=== PATIENT | male | born 1975 | race Caucasian/White ===

== ENCOUNTER 2023-02-18 17:32 | Inpatient (IN) | payer OTHER ==
[~2023-02-18] VITALS: Ht 172.7 cm; Wt 78.6 kg
[2023-02-18 22:55] VITALS: BP 112/68
[2023-02-18 23:45] VITALS: BP 121/82
[2023-02-19] VITALS (18 sets, daily range): BP systolic 94–131; BP diastolic 60–92
[2023-02-19] MEDS ORDERED: BUPRENORPHINE HC8 MG SL (12:03)
[2023-02-19] MEDS ORDERED: CLONAZEPAM0.5 MG PO (12:03)
[2023-02-19] MEDS ORDERED: CYCLOBENZAPRINE10 MG PO (12:04)
[2023-02-19] MEDS ORDERED: OMEPRAZOLE40 MG PO (12:04)
[2023-02-19] MEDS ORDERED: LAMOTRIGINE150 MG PO (12:05)
[2023-02-19] MEDS ORDERED: TRAZODONE HCL50 MG PO (12:05)
[2023-02-19] MEDS ORDERED: DULOXETINE HCL60 MG PO (12:06)
[2023-02-19] MEDS ORDERED: MELOXICAM15 MG PO (12:06)
[2023-02-19] MEDS ORDERED: ALEVE220 MG PO (17:10)
[2023-02-20] VITALS (17 sets, daily range): BP systolic 91–124; BP diastolic 63–91
--- NOTE | 2023-02-20 08:26 | CONS ---
[facility] [address] [place], [place] [address] Signed DATE OF CONSULTATION: 02/19/2023 CHIEF COMPLAINT: Anemia. HISTORY OF PRESENT ILLNESS: Leandro is a 47-year-old gentleman, who actually lives an hour over the [facility] in [place], [place]. We finally did receive some of his records and he is anemic with a low hemoglobin and a mean cell volume low as well. He has obviously been seeing his primary care providers at the clinic. He has had seen several providers. He tells me his dad and his mom is quite senile. He and his two brother still live in the family house. He is the only one in the whole family that drives. He has two children, but he never sees them. He said his friend, Mitali is his contact lens inspector, but it is actually her . It sounds like he has to spend some amount of time in a wheelchair because of his neck and lumbar radiculopathy. He mentions having undergone upper endoscopy twice in [address] Forman with esophageal dilation and a history of a moderate-sized hiatal hernia. 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 [place] [facility]. Apparently, he went up over the curve. I am not sure of all the details. He was tachycardic when the ambulance came and he end up coming to our local emergency room. His hemoglobin was all the way down to 2.5 with a mean cell volume of 54. BUN has been fine. His creatinine is up at 2.3 and his lactic acid was up at 17. Albumin is low at 2.5. His AST runs a little high at 44 and his alkaline phosphatase has been running high last fall, but it is normal today. The urine tox screen of course showed his typical buprenorphine but otherwise was negative. He has been admitted to our hospitalist service. He had a chest x-ray which was unremarkable. The CT scan of the abdomen and pelvis showed his moderate-sized hiatal hernia, but the liver and spleen and other areas were unremarkable. He has now received 6 units of packed red blood cells and overall is feeling much better. His labs have almost normalized. He has been working on his bowel prep today and amazingly, he is yet to pass any stool. He said he does not run constipated. He does not seem to have any upper or lower GI complaints and yet he takes meloxicam every day for his arthritis issues. However, he does use omeprazole every day as well. He said it is hard for him to buy his other medications because he cannot afford them. I have been asked to see him as a local general surgeon and consider upper and lower endoscopy once he has been stabilized. PAST MEDICAL HISTORY: Bipolar disorder, anxiety, depression, chronic neck pain, gastroesophageal reflux disease, moderate-sized hiatal hernia, degenerative disk disease, insomnia, decreased left lower extremity strength from his lumbar radiculopathy, carpal tunnel syndrome. He had webbed fingers as a child and had those repaired with the help of skin grafts. He also has esophageal dysphagia. Electronically Signed By: SARAH CARRIZALES MD 02/20/23 0826 PATIENT NAME: LEANDRO POLK CONSULTATION DATE OF : 79 REPORT #: [id number] PHYSICIAN: SARAH CARRIZALES MD PCP: OTHER PCP REPORT IS CONFIDENTIAL AND NOT TO BE RELEASED WITHOUT AUTHORIZATION [facility] [address] [place] [id number] Signed PAST SURGICAL HISTORY: The upper endoscopy with esophageal dilations x2 [place] [address] Forman, cervical disk surgery x2, carpal tunnel release, mandibular surgery and separation of his webbed fingers with skin grafts. SOCIAL HISTORY: Apparently, he does smoke and drinks some but apparently he has quit. Apparently has a wheelchair, but he does drive. He is single now, but he does have two children, which he has not seen in years. He prefers the [facility] in [place], [place]. Suzette Malik is his nurse practitioner. He said his dad has , but his mom is quite senile. He said he and his two brothers live in their family home. 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 He said his friend is Mitali Rice at [phone], although mainly it is her . FAMILY HISTORY: He cannot recall any colon cancer or polyps in the family. REVIEW OF SYSTEMS: He had 10 systems reviewed and he is a fair to moderate historian. ALLERGIES: Paper tape. MEDICATIONS: Buprenorphine p.r.n., clonazepam, baclofen, trazodone, Lamictal, meloxicam, and omeprazole. PHYSICAL EXAMINATION: VITAL SIGNS: Blood pressure is 119/82, his heart rate is 87, respiratory rate 17, temperature is 98.1. He is 96% on room air. He is 5 feet 8 inches at 78 kg with a body mass index of 26. GENERAL: Leandro is a 47-year-old gentleman, lying supine in the ICU bed, watching TV. He just finished his 6 unit of packed red blood cells. He was sleeping this morning when I first came. He still a little pale but generally is alert, awake and interactive and does his best to answer questions. LUNGS: Clear to auscultation. HEART: Regular rate and rhythm without murmurs. ABDOMEN: Soft, flat, although he just finished his second bottle of polyethylene glycol and he said he is a little full. RECTAL: Not performed currently. LABORATORY DATA: Electronically Signed By: SARAH CARRIZALES MD 02/20/23 0826 PATIENT NAME: LEANDRO POLK CONSULTATION DATE OF : 79 REPORT #: [id number] PHYSICIAN: SARAH CARRIZALES MD PCP: OTHER PCP REPORT IS CONFIDENTIAL AND NOT TO BE RELEASED WITHOUT AUTHORIZATION [facility] [address] [place], [place] [address] Signed His white blood count was 14.2, hemoglobin was 2.5, mean cell volume of 64. The platelets were 76, which is very similar what his labs were last fall. Sodium was slightly low at 131, BUN 24, creatinine 2.3. Lactic acid was 17. Liver function tests showed AST up a little at 44, his alkaline phosphatase was running a little high last fall, but it is normal today, his albumin runs low at 2.5. The INR is 1.39. Urinalysis showed the buprenorphine. Blood cultures are pending. RADIOGRAPHIC STUDIES: Chest x-ray was negative. CT scan of abdomen and pelvis shows the moderate-sized hiatal hernia, but a normal liver and spleen. ASSESSMENT AND PLAN: Leandro is a 47-year-old gentleman, who presents with what appears to be severe iron deficiency anemia. He does not seem to have any upper or lower GI complaints. We know he has a hiatal hernia and he takes meloxicam as well. He has had two prior upper endoscopies back in [address] Forman. I reviewed with him upper and lower endoscopy in detail. He recalls the test well. There is risk including, but not limited to gas bloating, crampy abdominal pain, bleeding, perforation requiring surgery, and missed diagnosis. We also reviewed the need for monitored anesthesia care given his acute situation and profound anemia requiring significant blood transfusion. We will plan on doing this hopefully tomorrow about 9 a.m. We may have to add some additional bowel prep as he has taken the whole bowel prep and yet to have a bowel movement. He has expressed understanding and agrees about plan. Sarah Carrizales MD ALB/MODL /[id number] cc: MD Suzette Felix NP [place], [place] Electronically Signed By: SARAH CARRIZALES MD 02/20/23 0826 PATIENT NAME: LEANDRO POLK CONSULTATION DATE OF : 79 REPORT #: [id number] PHYSICIAN: SARAH CARRIZALES MD PCP: OTHER PCP REPORT IS CONFIDENTIAL AND NOT TO BE RELEASED WITHOUT AUTHORIZATION [facility] [address] [place], [place] [address] Signed Copies: SARAH CARRIZALES MD ~ Electronically Signed By: SARAH CARRIZALES MD 02/20/23 0826 PATIENT NAME: LEANDRO POLK CONSULTATION DATE OF : 79 REPORT #: [id number] PHYSICIAN: SARAH CARRIZALES MD PCP: OTHER PCP REPORT IS CONFIDENTIAL AND NOT TO BE RELEASED WITHOUT AUTHORIZATION
[2023-02-21 01:59] VITALS: BP 124/80
[2023-02-21 05:26] VITALS: BP 110/74
--- NOTE | 2023-02-21 07:29 | OR ---
[facility] [address] [place], [place] [address] Signed DATE OF OPERATION: 02/20/2023 SURGEON: Sarah Carrizales MD PREOPERATIVE DIAGNOSES: 1. Severe anemia. 2. Hiatal hernia. 3. Chronic esophageal dysphagia. 4. Poor dentition. 5. History of constipation, resolved per patient. POSTOPERATIVE DIAGNOSES: 1. Moderate gastroduodenitis. 2. Significant distal esophagitis. 3. Djoretok-ut-rdmpr hiatal hernia (40-32 cm). 4. GE junction at 32 cm. 5. Inadequate/poor bowel prep. PROCEDURE: 1. Esophagogastroduodenoscopy with CLOtest and biopsies of the duodenum, pyloric bulb, antrum, GE junction and distal esophagus. 2. Sigmoidoscopy (60 cm). ESTIMATED BLOOD LOSS: None. INDICATIONS: Leandro is a 47-year-old gentleman, who lives in [place], [place], an hour over the [facility] [place], [place]. 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 On his way back, he had to stop at [place] [employer] [place] [facility]. Apparently, he drove up over the curb. When the ambulance came, he was tachycardic and brought to our local hospital. He was found to be rather significantly anemic with a hemoglobin of 12.5 and a mean cell volume of 54. His lactic acid was high at 17. BUN was up a little at 24 and his creatinine was up at 2.30. His albumin was low at 2.5. He takes buprenorphine chronically and of course that showed up on his urinalysis. INR was off a little at 1.39. He got admitted to the hospitalist service and received 6 units of packed red blood cells. He looks and feels much better. In the meantime, we did track down some of his records from his primary care provider over in [place], [place]. He has been evaluated for microscopic iron deficiency anemia last fall. At one point, he got his hemoglobin up to normal, but the mean cell volume never Electronically Signed By: SARAH CARRIZALES MD 02/21/23 0729 PATIENT NAME: LEANDRO POLK OPERATIVE REPORT DATE OF : 79 REPORT #: [id number] PHYSICIAN: SARAH CARRIZALES MD PCP: OTHER PCP REPORT IS CONFIDENTIAL AND NOT TO BE RELEASED WITHOUT AUTHORIZATION [facility] [address] [place], [place] [address] Signed did normalize. His AST frequently runs a little high and apparently has a history of alcohol use in the past. Also, his alkaline phosphatase has been running high, but it was normal here on admission. His BUN has always been normal on his outpatient blood work and it has normalized here in the hospital. He also had upper endoscopy twice in [address] Forman. Apparently, he was dilated as well. He said he is on omeprazole. Although he said his money is limited and some of the medications he cannot afford, although he does use his Lamictal and he does like his trazodone and meloxicam as well. I had met with Leandro here in the hospital yesterday as well as this morning. We reviewed upper endoscopy and he recalls that quite well. We also reviewed his colonoscopy. He understands there is risk including, but not limited to gas bloating, crampy abdominal pain, bleeding, perforation requiring surgery, and missed diagnosis. Interestingly, he gives no other upper or lower GI complaints. Also because of his acute situation, we asked for monitored anesthesia care and propofol infusion. He had expressed understanding and wished to proceed. PROCEDURE NOTE: Leandro was taken into our endoscopy suite and placed in a supine semi-recumbent position. He had extremely poor dentition. We placed a mouthpiece over his upper teeth. We then used our bite block. The adult gastroscope was introduced and advanced under direct visualization of camera. The duodenum was unremarkable. However, the pyloric bulb and the stomach showed moderate diffuse gastritis. We took biopsies of the duodenum, pyloric bulb and the antrum. We did not see any ulcers in the pyloric bulb or antrum. Upon retroflexion of scope, he clearly has a moderate to large hiatal hernia. It measured from 40 cm back to 32 cm. The GE junction is 32 cm from his incisors. He does have some inflammatory changes around the GE junction, but no Trejo's esophagus. However, he has rather significant linear distal esophagitis. We also took biopsies at the GE junction and his distal esophagus. The middle and upper esophagus were unremarkable. His arytenoids and epiglottis were unremarkable. After this, the gas was suctioned out and the gastroscope removed. Leandro tolerated his upper endoscopy quite well. Leandro was rotated into the left lateral decubitus position. He was maintained on propofol infusion per nurse interior plant caretaker. A digital rectal exam was performed. No external hemorrhoids. Good sphincter tone. No masses. Unfortunately, he had formed stool in the rectum along with really dark liquid stool. The adult colonoscope was introduced and we advanced it carefully up to about 60 cm, passed multiple areas of heavy liquid and particulate stool matter. At 60 cm, we could not pass the scope any further due to lack of visualization. Consequently, the scope was slowly withdrawn. We did not see any diverticula, nor masses or polyps. There was too much stool in the rectum to retroflex the scope. It was too heavy to suction through the scope. After this, the gas was suctioned out and the colonoscope removed. Leandro tolerated the lower endoscopy quite well. Electronically Signed By: SARAH CARRIZALES MD 02/21/23 0729 PATIENT NAME: LEANDRO POLK OPERATIVE REPORT DATE OF : 79 REPORT #: [id number] PHYSICIAN: SARAH CARRIZALES MD PCP: OTHER PCP REPORT IS CONFIDENTIAL AND NOT TO BE RELEASED WITHOUT AUTHORIZATION [facility] [address] [facility] [place] [address] Signed RECOMMENDATIONS: Leandro is going to be returning to his room on clear liquid diet. I will talk with our hospitalist service. He should increase his omeprazole to twice a day. He should significantly consider having surgical repair of his hiatal hernia, particularly if he can afford the medications. He is quite young and he is going to end up with a stricture in his esophagus if he does not make a change. He needs to repeat his colonoscopy as an outpatient. He did use an entire one gallon of polyethylene glycol as well as 20 mg of Dulcolax for the current bowel prep. The nurse has assured he took all the bowel prep. Consequently, he needs at least a prep in half if not a double prep for his colonoscopy. He can follow up in my office as needed here in [place]. MD RONNY Felix/RAJINDERL /[id number] cc: [facility] Suzette Carrizales MD Copies: SARAH CARRIZALES MD ~ Electronically Signed By: SARAH CARRIZALES MD 02/21/23 0729 PATIENT NAME: LEANDRO POLK OPERATIVE REPORT DATE OF : 79 REPORT #: [id number] PHYSICIAN: SARAH CARRIZALES MD PCP: OTHER PCP REPORT IS CONFIDENTIAL AND NOT TO BE RELEASED WITHOUT AUTHORIZATION
[2023-02-21 10:19] VITALS: BP 102/64
[2023-02-21 10:40] VITALS: BP 99/62
[2023-02-21 12:13] VITALS: BP 108/78
--- NOTE | 2023-02-24 10:51 | PATH ---
[facility] [address] [place], [place] [address] Signed SPECIMEN(S): A DUODENAL BIOPSY SPECIMEN(S): B DUODENAL BULB BIOPSY SPECIMEN(S): C ANTRUM/ANTRAL BIOPSY SPECIMEN(S): D GE JUNCTION SPECIMEN(S): E LOWER DISTAL ESOPHAGEAL BIOPSY SPECIMEN SOURCE: A. DUODENAL BIOPSY B. DUODENAL BULB BIOPSY C. ANTRUM/ANTRAL BIOPSY D. GE JUNCTION E. LOWER DISTAL ESOPHAGEAL BIOPSY CLINICAL HISTORY: Severe anemia, gastroduodenitis, esophagitis, hiatal hernia. Sigmoidoscopy; inadequate bowel prep. FINAL PATHOLOGIC DIAGNOSIS: A. Duodenal biopsy: - Benign duodenal mucosa, negative for specific diagnostic abnormality. B. Duodenal bulb biopsy: - Benign duodenal mucosa, negative for specific diagnostic abnormality. C. Antrum / antral biopsy: - Benign gastric-type mucosa with focal slight chronic inflammation. - Negative for Helicobacter organisms on routine HE stained sections. D. Gastroesophageal junction: - Benign glandular mucosa with reactive features, negative for specialized intestinal metaplasia or dysplasia. E. Lower distal esophageal biopsy: - Fragments of ulcer base with prominent acute inflammation consistent with abscess. - Negative for residual viable epithelium. - A PAS with diastase stain is negative for fungal organisms. JVR:sm:C2NR MICROSCOPIC EXAMINATION: Histologic sections of all submitted blocks are examined by light microscopy. These findings, together with the gross examination, support the pathologic diagnosis. A PAS with diastase stain is performed with appropriate controls on block (E1) and is negative for fungal organisms. PATIENT NAME: TEA POLK PATHOLOGY DATE OF : 79 REPORT #: [id number] PHYSICIAN: BRIAN PACK PCP: OTHER PCP REPORT IS CONFIDENTIAL AND NOT TO BE RELEASED WITHOUT AUTHORIZATION [facility] [address] [facility] [place] [address] Signed A CK AE1/3 immunostain is performed with appropriate controls on block (E1) and highlights a few scattered epithelial cells. JVR:[facility] GROSS DESCRIPTION: A. The specimen, labeled and designated "Kranthi, duodenal biopsy," is received in formalin and consists of one ramirez soft tissue fragment, 0.3 cm. Entirely submitted in (A1). B. The specimen, labeled and designated "Kranthi, duodenal bulb biopsy," is received in formalin and consists of one ramirez soft tissue fragment, 0.3 cm. Entirely submitted in (B1). C. The specimen, labeled and designated "Kranthi, antrum biopsy," is received in formalin and consists of one ramirez soft tissue fragment, 0.6 cm. Entirely submitted in (C1). D. The specimen, labeled and designated "Kranthi, GE junction biopsy," is received in formalin and consists of one ramirez soft tissue fragment, 0.2 cm. Entirely submitted in (D1). E. The specimen, labeled and designated "Kranthi, lower distal esophagus biopsy," is received in formalin and consists of one ramirez soft tissue fragment, 0.3 cm. Entirely submitted in (E1). VB (under the direct supervision of a pathologist) The Gross Description was prepared using a voice recognition system. The report was reviewed for accuracy; however, sound-alike word errors, addition and/or deletions may occur. If there is any question about this report, please contact Client Services. PERFORMING LABORATORY: Technical component was performed by [facility], [address] [place] [id number] (CLIA# [id number]). Professional interpretation was performed by [facility], [address] [place] [address], [place] [address] (CLIA#: [id number]). Diagnostician: Collin Dooley MD Pathologist Electronically Signed 02/24/2023 Copies: ~ PATIENT NAME: TEA POLK PATHOLOGY DATE OF : 79 REPORT #: [id number] PHYSICIAN: BRIAN PACK PCP: OTHER PCP REPORT IS CONFIDENTIAL AND NOT TO BE RELEASED WITHOUT AUTHORIZATION
--- NOTE | 2023-02-24 19:10 | EKG ---
[facility] [address] [facility] [place], [place] [address] Signed Normal sinus rhythm Normal ECG No previous ECGs available Confirmed by BAL LOPEZ MD ([id number]) on 02/24/2023 7:10:40 PM Electronically Signed By: BAL LOPEZ 02/24/23 191 PATIENT NAME: TEA POLK Electrocardiogram DATE OF : 79 PHYSICIAN: BAL LOPEZ REPORT #: [id number] REPORT IS CONFIDENTIAL AND NOT TO BE RELEASED WITHOUT AUTHORIZATION
== END 2023-02-21 12:25 | disposition home or self-care (01) | DRG 812 ==
LOC: ED 17:32 → CCU 21:57 → MS 02-20 22:04
PROVIDERS: Colon & Rectal Surgery; ADMIT Family Medicine; ATTEND Internal Medicine
PROC: 30233N1 Transfusion of Nonautologous Red Blood Cells into Peripheral Vein, Percutaneous Approach (ICD-10-PCS; principal; 2023-02-19)
PROC: 0DB78ZX Excision of Stomach, Pylorus, Via Natural or Artificial Opening Endoscopic, Diagnostic (ICD-10-PCS; 2023-02-20)
PROC: 0DB38ZX Excision of Lower Esophagus, Via Natural or Artificial Opening Endoscopic, Diagnostic (ICD-10-PCS; 2023-02-20)
PROC: 0DJD8ZZ Inspection of Lower Intestinal Tract, Via Natural or Artificial Opening Endoscopic (ICD-10-PCS; 2023-02-20)
PROC: 0DB48ZX Excision of Esophagogastric Junction, Via Natural or Artificial Opening Endoscopic, Diagnostic (ICD-10-PCS; 2023-02-20)
PROC: 0DB98ZX Excision of Duodenum, Via Natural or Artificial Opening Endoscopic, Diagnostic (ICD-10-PCS; 2023-02-20 09:00)
DX: D50.9 Iron deficiency anemia, unspecified (principal); N17.9 Acute kidney failure, unspecified; E87.20 Acidosis, unspecified; K29.70 Gastritis, unspecified, without bleeding; K21.00 Gastro-esophageal reflux disease with esophagitis, without bleeding; K29.90 Gastroduodenitis, unspecified, without bleeding; K44.9 Diaphragmatic hernia without obstruction or gangrene; G89.29 Other chronic pain; F31.9 Bipolar disorder, unspecified; R60.0 Localized edema; I95.9 Hypotension, unspecified; F17.290 Nicotine dependence, other tobacco product, uncomplicated; R13.14 Dysphagia, pharyngoesophageal phase; K59.00 Constipation, unspecified; F11.90 Opioid use, unspecified, uncomplicated; F39 Unspecified mood [affective] disorder; M54.16 Radiculopathy, lumbar region; M54.12 Radiculopathy, cervical region; G47.00 Insomnia, unspecified; R56.9 Unspecified convulsions; M19.90 Unspecified osteoarthritis, unspecified site; M51.9 Unspecified thoracic, thoracolumbar and lumbosacral intervertebral disc disorder; Z98.890 Other specified postprocedural states; Z91.048 Other nonmedicinal substance allergy status; Z79.899 Other long term (current) drug therapy; Z96.89 Presence of other specified functional implants; V89.2XXA Person injured in unspecified motor-vehicle accident, traffic, initial encounter
CPT/HCPCS: 00731; 36415; 36430; 51798; 71045; 74176; 80048; 80053; 81003; 82728; 83550; 83605; 83735; 84100; 85025; 85045; 85060; 85610; 85730; 86850; 86900; 86901; 86922; 87040; 87077; 93005; 93010; 99285 25; C9113; J0612; J2704; J7030; J7042; P9016